=== PATIENT | female | born 1985 | race African-American/Black ===

== ENCOUNTER 2018-12-04 18:23 | Emergency (ER) | payer OTHER ==
[~2018-12-04] VITALS: Ht 170.2 cm; Wt 83.9 kg
[2018-12-04] MEDS ORDERED: MOBIC15 MG PO (21:44)
[2018-12-04 22:03] VITALS: BP 133/79
== END 2018-12-04 22:03 | disposition home or self-care (01) ==
LOC: ER 18:23
DX: S20.212A Contusion of left front wall of thorax, initial encounter (principal); S60.211A Contusion of right wrist, initial encounter; T23.171A Burn of first degree of right wrist, initial encounter; T31.0 Burns involving less than 10% of body surface; V43.52XA Car driver injured in collision with other type car in traffic accident, initial encounter; Y93.89 Activity, other specified; Y92.89 Other specified places as the place of occurrence of the external cause; Y99.8 Other external cause status

== ENCOUNTER 2019-01-18 11:25 | Emergency (ER) | payer OTHER ==
[~2019-01-18] VITALS: Ht 170.2 cm; Wt 79.4 kg
[~2019-01-18 11:25] MED LIST: MOBIC15 MG PO
[2019-01-18 11:26] VITALS: BP 126/75
[2019-01-18] MEDS ORDERED: IBUPROFEN 600600 M1 PO (13:30)
== END 2019-01-18 14:04 | disposition home or self-care (01) ==
LOC: ER 11:25
DX: M79.641 Pain in right hand (principal); Z98.51 Tubal ligation status